=== PATIENT | male | born 1955 | race Caucasian/White ===

== ENCOUNTER 2017-02-22 07:18 | Day surgery (SDC) | payer BC ==
[2017-02-22] VITALS (9 sets, daily range): BP systolic 98–131; BP diastolic 56–80
[~2017-02-22] VITALS: Ht 180.3 cm; Wt 86.7 kg
[~2017-02-22 07:18] MED LIST: LR 1000ml 1,000 ML IVLG SCH
[2017-02-22] MEDS ORDERED: NORVASC5 MG ORAL (07:50)
[2017-02-22] MEDS ORDERED: BYSTOLIC 10MG10 MG ORAL (07:50)
[2017-02-22] MEDS ORDERED: VITAMIN D5000 UNI1 PO (07:50)
[2017-02-22] MEDS ORDERED: vitamin PO (07:50)
[2017-02-22] MEDS ORDERED: CRESTOR10 M1 ORAL (07:50)
[2017-02-22] MEDS ORDERED: LR 1000ml ONE (08:00)
[2017-02-22] MEDS ORDERED: Propofol 200mg/20ml IV ONE (08:00)
--- NOTE | 2017-02-22 08:15 | Pre-Procedure Note/Attestation ---
Pre-Procedure Note/Attestation Complete Prior to Procedure Planned Procedure: not applicable Procedure Narrative: colon Indications for Procedure Pre-Operative Diagnosis: screen Attestation I attest that I discussed the nature of the procedure; its benefits; risks and complications; and alternatives (and the risks and benefits of such alternatives ), prior to the procedure, with the patient (or the patient's legal sales solutions representative). I attest that, if there was a reasonable possibility of needing a blood transfusion, the patient (or the patient's legal sales solutions representative) was given the [facility] standardized written summary, pursuant to the Rigoberto Iva Blood Safety Act ([place] Health and Safety Code # 1645, as amended). I attest that I re-evaluated the patient just prior to the surgery and that there has been no change in the patient's H&P, except as documented below: ABE ALEXANDER Feb 22, 2017 08:15
--- NOTE | 2017-02-22 08:15 | Short Stay Surgery H&P ---
History of Present Illness History of Present Illness Chief Complaint see typed H&P HPI Milton Miramontes is a 61 year old male who was admitted on for Colon Screening Patient History Allergies: Coded Allergies: No Known Allergies (Unverified , 02/22/17) PAST MEDICAL HISTORY: Past Surgeries: Social History: Medication History Scheduled Amlodipine Besylate (Norvasc), 5 MG ORAL BID, (Reported) Bysto (Bystolic), 10 MG ORAL DAILY, (Reported) Cholecalciferol (Vitamin D3) (Vitamin D), 5,000 UNIT PO DAILY, (Reported) Rosuvastatin Calcium (Crestor), 10 MG ORAL DAILY, (Reported) [vitamin ], Unknown Dose PO DAILY, (Reported) Physical Exam Vital Signs Last Vital Signs Date Time Temp Pulse Resp B/P (MAP) Pulse Ox O2 Delivery O2 Flow Rate FiO2 02/22/17 07:42 97.8 62 18 131/80 98 Room Air Plan Attestation Are the patient's medical conditions optimized for surgery? ABE ALEXANDER Feb 22, 2017 08:14
[2017-02-22] MEDS ORDERED: LR 1000ml 1,000 ML IVLG SCH (08:28)
[2017-02-22] MEDS ORDERED: LR 1000ml 1,000 ML IV SCH (08:30)
[2017-02-22] MEDS ORDERED: fentaNYL 100 mcg/2 mL IV PRN (08:30)
--- NOTE | 2017-02-22 08:32 | Immediate Post-Op Evaluation ---
Immediate Post-Op Evalulation Immediate Post-Op Evalulation Procedure: Colonoscopy Date of Evaluation: Feb 22, 2017 Time of Evaluation: 08:55 IV Fluids: 300 Blood Pressure Systolic: 100 Blood Pressure Diastolic: 59 Pulse Rate: 53 Respiratory Rate: 19 O2 Sat by Pulse Oximetry: 100 Temperature (Fahrenheit): 97.0 Pain Score (1-10): 0 Nausea: No Vomiting: No Complications No complication Patient Status: awake, patent, none Hydration Status: adequate Drug: None MARINE SHIRLEY M.D. Feb 22, 2017 08:32
--- NOTE | 2017-02-22 08:32 | Anethesia Preoperative Eval ---
Anesthesia Pre-op PMH/ROS General Date of Evaluation: Feb 22, 2017 ASA Score: ASA 2 Mallampati Score Class I : Soft palate, uvula, fauces, pillars visible Class II: Soft palate, uvula, fauces visible Class III: Soft palate, base of uvula visible Class IV: Only hard plate visible Mallampati Classification: Class II Surgeon: Rosa Diagnosis: Screening Surgical Procedure: Colonoscopy Allergies: Coded Allergies: No Known Allergies (Unverified , 02/22/17) Medications: see eMAR Past Medical History Cardiovascular: Reports: HTN, Denies: CAD, DE, valve dz, arrhythmia, other Pulmonary: Denies: asthma, COPD, LEYDI, other Gastrointestinal/Genitourinary: Denies: GERD, CRI, ESRD, other Neurologic/Psychiatric: Denies: dementia, CVA, depression/anxiety, TIA, other Endocrine: Denies: DM, hypothyroidism, steroids, other HEENT: Denies: cataract (L), cataract (R), glaucoma, [place] (L), [place] (R), other Hematology/Immune: Denies: anemia, DVT, bleeding disorder, other Musculoskeletal/Integumentary: Denies: OA, RA, DJD, DDD, edema, other PMH Narrative: HTN PSxH Narrative: No prior surgery Anesthesia Pre-op Phys. Exam Physician Exam Last Vital Signs Date Time Temp Pulse Resp B/P (MAP) Pulse Ox O2 Delivery O2 Flow Rate FiO2 02/22/17 07:42 97.8 62 18 131/80 98 Room Air Constitutional: NAD Neurologic: CN 2-12 intact Cardiovascular: RRR, no M/R/G Respiratory: CTA Gastrointestinal: S/NT/ND Airway Exam Mallampati Score: Class II MO: full ROM: full Teeth: intact Anesthesia Pre-op A/P Risk Assessment & Plan Assessment: Healthy hypertensive male for colonoscopy Plan: GA, TIVA Status Change Before Surgery: No Pre-Antibiotics Drug: None MARINE SHIRLEY M.D. Feb 22, 2017 08:32
--- NOTE | 2017-02-22 08:53 | 48 Hour Post Anesthesia Eval ---
Post Anesthesia Evaluation Procedure: Colonoscopy Date of Evaluation: Feb 22, 2017 Time of Evaluation: 09:20 Blood Pressure Systolic: 132 0: 78 Pulse Rate: 62 Respiratory Rate: 18 O2 Sat by Pulse Oximetry: 99 Airway: patent Nausea: No Vomiting: No Pain Intensity: 0 Hydration Status: adequate Cardiopulmonary Status: Stable Mental Status/LOC: patient returned to baseline Follow-up Care/Observations: As per GI Post-Anesthesia Complications: No anesthetic complication Follow-up care needed: N/A MARINE SHIRLEY M.D. Feb 22, 2017 08:53
--- NOTE | 2017-02-22 09:05 | Endoscopy Procedure Note ---
Endoscopy Procedure Note Indication for Procedure: screen Procedures Performed: colonoscopy Operative Findings/Diagnosis: mild rhoids Specimen: none Pt Tolerated Procedure Well: Yes Estimated Blood Loss: none Anesthesiologist: Qamar Anesthesia: MAC Medication Given: see anesthesia record Implant(s) used?: No 50 yrs or older w/o bx or poly: Yes 10yrs. F/U not recommended: Yes If not recommended, why?: 10 yrs. F/U needed: Yes 18 years or older w/prev. colo: No <3yrs. since last colonoscopy: No Med reason:<3 yrs.: System Reason:<3 yrs.: Last colonoscopy >= to 3yrs: Yes ABE ALEXANDER Feb 22, 2017 09:05
--- NOTE | 2017-02-22 09:07 | Brief Operative Note ---
Immediate Post Operative Note Operative Note Chief Complaint: sreen Pre-op Diagnosis: screen Procedure: colon Post-op Diagnosis: mild rhoid Surgeon: lester Anesthesiologist: Qamar Anesthesia: MAC, moderate sedation Specimen: none Complications: none Condition: stable Fluids: see record Estimated Blood Loss: none Drains: none Implant(s) used?: No ABE ALEXANDER Feb 22, 2017 09:07
--- NOTE | 2017-02-22 22:30 | Procedure Note ---
DATE OF PROCEDURE: 02/22/2017 PROCEDURE: Screening colonoscopy. SURGEON: Raquel Lee M.D. ANESTHESIA: Please see the separate anesthesiologist's notes for details. PRE-ENDOSCOPIC DIAGNOSIS: Screening. POST-ENDOSCOPIC DIAGNOSIS: 1. Mild internal hemorrhoids. 2. Normal colonoscopy including the terminal ileum. DESCRIPTION OF PROCEDURE: The procedure was explained to the patient and informed consent was obtained. The patient was then sedated in the left lateral decubitus position. Rectal exam was done, which was unremarkable. The colonoscope was then introduced in the rectum and advanced to the terminal ileum without difficulty. The colonoscope was then gradually withdrawn and the mucosa examined carefully. Examination of the terminal ileum and the colonic mucosa did not reveal any polyps or other abnormalities. Retroflex view of the rectum revealed mild internal hemorrhoids. The colonoscope was removed and the patient was sent to recovery in good condition. COMPLICATIONS: None. RECOMMENDATIONS: 1. High-fiber diet. 2. Repeat colonoscopy in 10 years. Raquel Lee M.D. DR: Alex JOB#: [id number] CC: Raquel Lee M.D.; Fax#: [phone]
== END 2017-02-22 10:00 | disposition home or self-care (01) ==
LOC: GAS 07:18
DX: Z12.11 Encounter for screening for malignant neoplasm of colon (principal); K64.8 Other hemorrhoids; I10 Essential (primary) hypertension; E78.00 Pure hypercholesterolemia, unspecified; Z87.442 Personal history of urinary calculi; Z80.41 Family history of malignant neoplasm of ovary; Z83.3 Family history of diabetes mellitus; Z81.8 Family history of other mental and behavioral disorders
CPT/HCPCS: 45378; J2704; J7120; 94003; 94150